=== PATIENT | male | born 1965 | race Caucasian/White ===

== ENCOUNTER 2017-01-29 20:06 | Emergency (ER) | payer OTHER ==
[2017-01-29 20:14] VITALS: BP 159/92; PULSE 72; RESP 18; TEMP 98.4; O2SAT 96
[2017-01-29] MEDS ORDERED: AMOXICILLIN/CLAVULANATE POT 875/125 MG TAB PO ONE (20:27)
--- NOTE | 2017-01-29 20:28 | EDPHY ---
H & P Time Seen by Provider: 01/29/17 20:17 HPI/ROS: CHIEF COMPLAINT: Dog bite to left hand History by patient HISTORY OF PRESENT ILLNESS: 51-year-old man presents complaining of dog bite to his left hand by his neighbor's dog. The dog's vaccinations are supposedly up-to-date. Patient initially irrigated the wound copiously with water from his toes. Over the course of the afternoon and evening he noticed some redness and swelling prompting him to seek medical attention. He denies any fever or pus draining from the wound. He thinks his last tetanus shot was less than 10 years ago. He will verify that with his primary care physician tomorrow. He denies any other pain or injury. REVIEW OF SYSTEMS: As in HPI, and all other systems reviewed and are negative Smoking Status: Never smoked Physical Exam: General Appearance: Alert and no distress. Eyes: Pupils equal and round no injection. Musculoskeletal: Neck is supple and nontender. Extremities: Left hand positive puncture wound on the ulnar dorsum at the base of his ring finger and superficial abrasion on radial side with surrounding erythema and swelling and an area of comprising small ring and middle MCP joint. Palmar side is not involved. Patient has full range of motion of all hand joints against resistance without pain. Distal cap is less than 2 seconds. Distal sensation is intact. Skin: No rashes or lesions except as described above. Constitutional: Initial Vital Signs Temperature (C) 36.9 C 01/29/17 20:11 Heart Rate 72 01/29/17 20:11 Respiratory Rate 18 01/29/17 20:11 Blood Pressure 159/92 H 01/29/17 20:11 O2 Sat (%) 96 01/29/17 20:11 O2 Delivery Mode Room Air Allergies/Adverse Reactions: No Known Allergies Allergy (Unverified 01/29/17 20:14) Home Medications: Medication Instructions Recorded Amoxicillin/Clavulanate Pot 875 mg PO BID #28 tab 01/29/17 [Augmentin 875 MG TAB (*)] Zyrtec 01/29/17 MDM/Departure - MDM ED Course/Re-evaluation: 51-year-old man presents with left hand swelling and redness at site of a dog bite that occurred approximately 8 hours ago. There has been no pus or fever. Patient tetanus is likely up-to-date. He will check his primary care physician tomorrow. Wound was irrigated and dressed. Area of redness and swelling was demarcated with a marker. Patient is started on oral Augmentin as there is no evidence of systemic toxicity. Patient will follow up with his primary care physician tomorrow for recheck and sooner if the redness starts spreading outside the demarcated area, or if he develops fever or increased pain or swelling. Patient understands and is agreeable to this plan.. - Depart Disposition: Home, Routine, Self-Care Clinical Impression: Infected dog bite of hand Qualifiers: Encounter type: initial encounter Laterality: left Qualified Code(s): S61.452A - Open bite of left hand, initial encounter; L08.9 - Local infection of the skin and subcutaneous tissue, unspecified; L08.9 - Local infection of the skin and subcutaneous tissue, unspecified; W54.0XXA - Bitten by dog, initial encounter; W54.0XXA - Bitten by dog, initial encounter Clinical Impression: (Ruled Out): Dog bite of extremity Condition: Good Instructions: Animal Bite (ED) Additional Instructions: You were seen by Dr. Penny Varma today. Take antibiotics as prescribed. Please soak your hand in warm soapy water at least twice a day. Return immediately if the redness starts spreading outside the marked area, it starts draining pus redeveloped a fever. Please have your hand recheck by your primary care physician in 24 hours. You may take ibuprofen 400 mg 4 times a day and/or Tylenol 500-1000 mg 4 times a day for pain. I recommend taking probiotics in between doses of your antibiotics. Return for any worsening or new concerns. Prescriptions: Amoxicillin/Clavulanate Pot [Augmentin 875 MG TAB (*)] 875 mg PO BID #28 tab Referrals: Benoit Anders, DO [Primary Care Provider] - As per Instructions
== END 2017-01-29 20:44 | disposition home or self-care (01) ==
LOC: CED 20:06
DX: S61.452A Open bite of left hand, initial encounter (principal); W54.0XXA Bitten by dog, initial encounter